=== PATIENT | male | born 2000 | race African-American/Black ===

== ENCOUNTER 2021-06-22 11:43 | Emergency (ER) | payer OTHER ==
[~2021-06-22] VITALS: Ht 177.8 cm; Wt 68.0 kg
[2021-06-22 12:40] VITALS: BP 117/72
== END 2021-06-22 13:29 | disposition home or self-care (01) ==
LOC: ER 12:53
DX: R19.7 Diarrhea, unspecified (principal); I10 Essential (primary) hypertension; Z11.52 Encounter for screening for COVID-19; Z20.822 Contact with and (suspected) exposure to COVID-19
CPT/HCPCS: 99283; C9803; U0003; U0005